=== PATIENT | female | born 1955 | race Caucasian/White ===

== ENCOUNTER 2021-12-01 08:50 | Emergency (ER) | payer MEDICAID ==
[~2021-12-01] VITALS: Ht 157.5 cm; Wt 73.0 kg
[2021-12-01 08:56] VITALS: BP 177/71
[2021-12-01] MEDS ORDERED: P50 MT (09:49)
[2021-12-01] MEDS ORDERED: B50 GT (09:49)
== END 2021-12-01 10:05 | disposition home or self-care (01) ==
LOC: ER 08:50
DX: H57.89 Other specified disorders of eye and adnexa (principal); H05.223 Edema of bilateral orbit; T49.5X5A Adverse effect of ophthalmological drugs and preparations, initial encounter; Y92.89 Other specified places as the place of occurrence of the external cause; I10 Essential (primary) hypertension
CPT/HCPCS: 99283